=== PATIENT | female | born 1995 | race Caucasian/White ===

== ENCOUNTER 2023-04-28 01:05 | Emergency (ER) | payer BC ==
[2023-04-28 01:36] VITALS: BP 145/90
[2023-04-28 01:59] LABS: BILIRUBIN,URINE NEGATIVE (NEGATIVE); GLUCOSE, URINE (UA) NEGATIVE (NEGATIVE); KETONES,URINE (UA) NEGATIVE (NEGATIVE); LEUKOCYTE ESTERASE, URINE TRACE (NEGATIVE); NITRITE,URINE POSITIVE (NEGATIVE); OCCULT BLOOD,URINE LARGE (NEGATIVE); PROTEIN,URINE >=300 mg/dL (NEGATIVE); UROBILINOGEN,URINE 1 (NORMAL) E.U./dL (NORMAL)
[2023-04-28 02:01] LABS: CLARITY,URINE CLOUDY (CLEAR); HCG UR QUAL NEGATIVE
[2023-04-28 02:02] LABS: BACTERIA,URINE Few /HPF (None Seen); RBC,URINE TNTC /HPF (0-5); SQUAMOUS EPITHELIAL CELL,UR FEW Squamous (<= Few); WBC,URINE >25 /HPF (0-5)
--- NOTE | 2023-04-28 03:19 | ED Physician Documentation ---
PD HPI FEMALE - Stated complaint Stated Complaint: FEMALE - Chief complaint Chief Complaint: UTI - History obtained from History obtained from: Patient - Additional information Additional information: HPI from patient. Patient c/o 1-2 days of burning dysuria, hematuria, sensation of incomplete voiding. Symptoms are similar to her previous UTIs, per patient. Review of Systems Constitutional: denies: Fever : reports: Dysuria, Frequency, Hematuria. denies: Discharge, Now [facility] PD PAST MEDICAL HISTORY - Past Medical History Past Medical History: Yes Respiratory: Asthma Psych: Depression, Anxiety - Past Surgical History Past Surgical History: No - Present Medications Home Medications: Ambulatory Orders Medication Instructions Recorded Confirmed Albuterol Sulfate [Proventil Hfa] 2 puffs IH Q4HR PRN 04/28/23 04/28/23 Fluticasone 110 Mcg [Flovent] 1 puffs IH BID 04/28/23 04/28/23 Levonorgestrel-Ethin Estradiol 1 tab PO DAILY 04/28/23 04/28/23 [Levonor-Eth Estrad 0.15-0.03] Montelukast Sodium 10 mg PO DAILY 04/28/23 04/28/23 Nitrofurantoin [Macrobid] 100 mg PO BID #10 cap 04/28/23 Phenazopyridine HCl [Pyridium] 200 mg PO TID PRN #6 tablet 04/28/23 buPROPion HCL [Wellbutrin Xl] 1 tab PO DAILY 04/28/23 04/28/23 - Allergies Allergies/Adverse Reactions: Allergies Allergy/AdvReac Type Severity Reaction Status Date / Time Penicillins Allergy Anaphylaxis Verified 04/28/23 01:30 - Social History Does the pt smoke?: No Smoking Status: Never smoker Does the pt drink ETOH?: Yes ETOH Use: Wine, Liquor Does the pt have substance abuse?: No - Immunizations Immunizations are current?: Yes - POLST Patient has POLST: No PD ED PE NORMAL - Vitals Vital signs reviewed: Yes - General General: Alert and oriented X 3, No acute distress, Well developed/nourished - Abdomen Abdomen: Soft, Non tender - Back Back: No CVA TTP Results - Vitals Vitals: Oxygen O2 Source Room air - Labs Labs: Microbiology 04/28/23 01:37 Urine Culture - Preliminary Urine,Clean Catch Laboratory Tests 04/28/23 01:37 Urine Color BROWN Urine Clarity CLOUDY Urine pH 6.0 Ur Specific [place] 1.025 Urine Protein >=300 H Urine Glucose (UA) NEGATIVE Urine Ketones NEGATIVE Urine Occult Blood LARGE H Urine Nitrite POSITIVE H Urine Bilirubin NEGATIVE Urine Urobilinogen 1 (NORMAL) Ur Leukocyte Esterase TRACE H Urine RBC TNTC H Urine WBC >25 H Ur Squamous Epith Cells FEW Squamous Urine Bacteria Few Ur Microscopic Review INDICATED Urine Culture Comments INDICATED Urine HCG, Qual NEGATIVE PD Medical Decision Making - ED course Complexity details: considered differential, d/w patient ED course: UA results , combined with symptoms, are c/w UTI. Given pyridium and macrobid in ED with rx for these medications e-prescribed to her pharmacy of choice. Results d/w patient, return precautions reviewed. Departure - Departure Disposition: 01 Home, Self Care Clinical Impression: Urinary tract infection Qualifiers: Urinary tract infection type: acute cystitis Hematuria presence: with hematuria Qualified Code(s): N30.01 - Acute cystitis with hematuria Condition: Good Instructions: ED UTI Cystitis Female Prescriptions: Nitrofurantoin [Macrobid] 100 mg PO BID #10 cap Phenazopyridine HCl [Pyridium] 200 mg PO TID PRN #6 tablet PRN Reason: dysuria Comments: Prescriptions for an antibiotic (Macrobid) and medication to help with symptoms associated with urinary tract infection (Pyridium) have been electronically submitted to the [facility] pharmacy in [place]. Discharge Date/Time: 04/28/23 03:39
[2023-04-28] MEDS ORDERED: NITROFURANTOIN MACRO 100 MG CAPSULE PO STA (03:27)
[2023-04-28] MEDS ORDERED: PHENAZOPYRIDINE 100 MG TABLET PO STA (03:27)
== END 2023-04-28 03:39 | disposition home or self-care (01) ==
LOC: ED 01:05
DX: N30.01 Acute cystitis with hematuria (principal)
CPT/HCPCS: 81001; 81025; 87077; 87086; 87181; 99283; A9270; 81003

== ENCOUNTER 2023-07-31 18:11 | Outpatient (CLI) | payer BC ==
--- NOTE | 2023-08-01 12:29 | XRAY Report ---
PROCEDURE: Ankle 3 View RT INDICATIONS: RIGHT ANKLE JOINT PAIN TECHNIQUE: 3 views of the ankle were acquired. COMPARISON: None. FINDINGS: Bones: No acute fractures or dislocations. Ankle mortise is normally aligned. No suspicious bony l esions. Small plantar calcaneal enthesophyte. Soft tissues: No suspicious soft tissue calcifications. IMPRESSION: No acute osseous abnormality. If there is clinical concern or persistent symptoms, additional imaging such as repeat radiographs or advanced imaging (e.g. CT, MRI) may be helpful for further evaluation. Reviewed by: Geovanny Rutherford MD on 08/01/2023 12:28 PM PST Approved by: Geovanny Rutherford MD on 08/01/2023 12:28 PM PST Station ID: [id number]
== END 2023-07-31 18:12 | disposition home or self-care (01) ==
LOC: DI 18:11
PROVIDERS: ATTEND Registered Nurse
DX: M25.571 Pain in right ankle and joints of right foot (principal)